=== PATIENT | female | born 1970 | race Caucasian/White ===

== ENCOUNTER 2020-01-10 21:27 | Emergency (ER) | payer OTHER ==
[~2020-01-10] VITALS: Ht 167.6 cm; Wt 77.1 kg
[2020-01-10 23:05] LABS: URINE BILIRUBIN NEGATIVE (Negative); URINE BLOOD NEGATIVE (Negative); URINE CLARITY CLEAR; URINE COLOR YELLOW; URINE GLUCOSE-RANDOM 2+ (Negative); URINE KETONES TRACE (Negative); URINE LEUKOCYTES-REFLEX NEGATIVE (Negative); URINE NITRITE-REFLEX NEGATIVE (Negative); URINE PROTEIN 1+ (Negative); URINE SPECIFIC GRAVITY 1.025 (1.005-1.030); URINE UROBILINOGEN 0.2 E.U./dl (0.2-1.0)
[2020-01-10 23:12] LABS: AMP/METHAMP POSITIVE (Negative); BARBITURATES Negative (Negative); BENZODIAZEPINES Negative (Negative); COCAINE Negative (Negative); METHADONE Negative (Negative); OPIATES Negative (Negative); PCP Negative (Negative); THC Negative (Negative)
[2020-01-11] MEDS ORDERED: FLEXERIL PO (00:10)
[2020-01-11 00:28] VITALS: BP 179/97
== END 2020-01-11 00:29 | disposition home or self-care (01) ==
LOC: M.ERS 21:27
PROVIDERS: Emergency Medicine
DX: M54.6 Pain in thoracic spine (principal); Z98.890 Other specified postprocedural states

== ENCOUNTER 2020-02-10 12:41 | Emergency (ER) | payer OTHER ==
[~2020-02-10] VITALS: Ht 167.6 cm; Wt 72.6 kg
[~2020-02-10 12:41] MED LIST: FLEXERIL PO
[2020-02-10] MEDS ORDERED: NAPROSYN500 MG PO (14:17)
[2020-02-10] MEDS ORDERED: APAP W/CODEINE1 TA2 PO (14:17)
[2020-02-10 14:39] VITALS: BP 167/109
== END 2020-02-10 14:40 | disposition home or self-care (01) ==
LOC: M.ERS 12:41
DX: S93.492A Sprain of other ligament of left ankle, initial encounter (principal); S50.312A Abrasion of left elbow, initial encounter; M25.562 Pain in left knee; Z98.890 Other specified postprocedural states; W17.89XA Other fall from one level to another, initial encounter; Y93.89 Activity, other specified; Y92.89 Other specified places as the place of occurrence of the external cause; Y99.9 Unspecified external cause status